=== PATIENT | female | born 1975 | race Caucasian/White ===

== ENCOUNTER 2021-02-08 14:23 | Outpatient (REF) | payer OTHER, SELFPAY | END 2021-02-08 14:24 | disposition home or self-care (01) | LOC: HO.LNP 14:23 | PROVIDERS: Visit Provider Physician Assistant | DX: Z20.822 Contact with and (suspected) exposure to COVID-19 (principal); J98.8 Other specified respiratory disorders; B97.89 Other viral agents as the cause of diseases classified elsewhere | CPT/HCPCS: U0003; U0005 ==

== ENCOUNTER 2023-12-16 15:50 | Outpatient (AMB) | payer OTHER, SELFPAY ==
--- NOTE | 2023-12-16 15:51 | AM.OFFWIN_ITS ---
Intake Vital Signs 12/16/23 15:52 Height 5 ft 2 in Weight 235 lb BMI 43.0 BP 114/66 Blood Pressure Location Rt brachial Position Sitting Pulse 71 Pulse Source Pulse Oximeter Temp 98.3 F Temp Source Oral Pulse Oximetry (%) 97 Oxygen Delivery Method Room Air Intake Visit Reasons: EP-b/l ears clogged and pain Intake Note: pt c/o bilateral ear blockage and RT ear pain. Started 2 days ago Patient Tobacco Use Status: Former Tobacco user Allergies azithromycin Allergy (Severe, Verified 12/16/23 15:51) liver failure sulfamethoxazole [From Bactrim] Allergy (Severe, Verified 12/16/23 15:51) liver failure trimethoprim [From Bactrim] Allergy (Severe, Verified 12/16/23 15:51) liver failure Do you need a note to return to daycare/school/sports/work: No HPI HPI Comments History of Present Illness Details Patient is a 48-year-old female complaining of 2 days of bilateral ear feeling like they are blocked in the right ear hurts. She denies any reduction in her hearing she says things just sound differently. She denies any fevers PFSH Social History Patient Tobacco Use Status: Former Tobacco user Review of Systems Const All systems reviewed & are unremarkable except as noted in HPI and below Physical Exam Vital Signs: Last Vital Signs Temp 98.3 F 12/16/23 15:52 Pulse 71 12/16/23 15:52 BP 114/66 12/16/23 15:52 Pulse Ox 97 12/16/23 15:52 Oxygen Delivery Method Room Air 12/16/23 15:52 BMI result Body Mass Index 43.0 Const General: cooperative, healthy appearing, comfortable and no acute distress Orientation/consciousness: patient oriented x3 HEENT Head: Yes normal to inspection, Yes No palpable skull fracture present and Yes normocephalic Ears: hearing grossly normal bilaterally, external ears normal, TM's normal bila terally, mastoids normal (no TTP) bilaterally and Abnormal EAC present erythema on the right, edema on the right and EAC tenderness on the right General nose exam: Normal external nose present Face and sinus: Yes normal facial exam Mouth: Normal oral and palatal mucosa present Teeth and gingiva: dentition normal Throat: Yes posterior oropharynx normal Eyes General: appearance normal, both eyes and all related structures Neck Neck: Yes normal visual inspection, Yes full ROM, Yes no lymphadenopathy, Yes no meningeal signs, Yes trachea midline and Yes supple Resp Effort & Inspection: normal respiratory effort and able to speak in complete sentences Skin General skin exam: no rashes or lesions noted Neuro General: patient oriented x3 and no meningeal signs Assessment & Plan Assessment & Plan (1) Otitis externa: Code(s): H60.90 - Unspecified otitis externa, unspecified ear Qualifiers: Otitis externa type: unspecified type Chronicity: acute Laterality: right Qualified Code(s): H60.501 - Unspecified acute noninfective otitis externa, right ear Plan: Recommended using the drops in her right ear 4 times a day for 7 days. If no improvement in her symptoms, she should follow up with her PCP Plan See above Medications: New [id number] 3.5-10,000-1 mg/mL-unit/mL-% 4 drps otic (ear) right QID 10 mL 0RF 7 days Coding Level of Care Code New Pt Level 3 (95279) Diagnoses Acute otitis externa of right ear, unspecified type H60.501 Otitis externa type: unspecified type Chronicity: acute Laterality: right
[2023-12-16 15:52] VITALS: BP 114/66; PULSE 71; TEMP 36.8; O2SAT 97; BMI 43.0
== END 2023-12-16 16:33 | disposition home or self-care (01) ==
PROVIDERS: PCP Internal Medicine; Visit Provider Physician Assistant
DX: H60.501 Unspecified acute noninfective otitis externa, right ear (principal)

== ENCOUNTER → 2023-12-16 15:50 | Outpatient (BNVA) | payer OTHER, SELFPAY | PROVIDERS: PCP Internal Medicine | DX: H60.501 Unspecified acute noninfective otitis externa, right ear (principal) ==